=== PATIENT | female | born 1945 | race Caucasian/White ===

== ENCOUNTER 2022-01-26 20:28 | Emergency (ER) | payer BC ==
[~2022-01-26] VITALS: Ht 152.4 cm; Wt 83.6 kg
[2022-01-26 20:30] VITALS: BP 167/73
[2022-01-26] MEDS ORDERED: AMLO1TAB24 PO (20:43)
[2022-01-26] MEDS ORDERED: ENAL20TA11 PO (20:43)
[2022-01-26] MEDS ORDERED: ATEN50TA2 PO (20:43)
[2022-01-26] MEDS ORDERED: ATOR40TA75 PO (20:43)
[2022-01-26] MEDS ORDERED: MECL-86 PO (20:43)
[2022-01-26] MEDS ORDERED: CITA10TA7 PO (20:43)
[2022-01-26] MEDS ORDERED: WARF4TAB52 PO (20:43)
[2022-01-26] MEDS ORDERED: WARF-58 PO (20:43)
[2022-01-26] MEDS ORDERED: AVASINJ2 IV (20:43)
[2022-01-27] MEDS ORDERED: CEPH500C PO (00:40)
[2022-01-27] MEDS ORDERED: CEPHALEXIN 500 MG CAP PO ONE (00:40)
== END 2022-01-27 01:10 | disposition home or self-care (01) ==
LOC: M ED 20:28
DX: L03.116 Cellulitis of left lower limb (principal); I48.91 Unspecified atrial fibrillation; I10 Essential (primary) hypertension; J44.9 Chronic obstructive pulmonary disease, unspecified; Z85.118 Personal history of other malignant neoplasm of bronchus and lung; Z79.899 Other long term (current) drug therapy